=== PATIENT | female | born 1985 | race Caucasian/White ===

== ENCOUNTER 2024-03-24 11:48 | Outpatient (REF) | payer BC, SELFPAY ==
[2024-03-24 13:01] LABS: Internal Control Within Normal Limits; SARS-CoV-2 Ag POSITIVE (NEGATIVE)
== END 2024-03-24 11:49 | disposition home or self-care (01) ==
LOC: LAB 11:48
PROVIDERS: PCP Nurse Practitioner Family; Visit Provider Nurse Practitioner Family
DX: B34.9 Viral infection, unspecified (principal)
CPT/HCPCS: 87811

== ENCOUNTER 2024-06-01 13:22 | Outpatient (OUT) | payer BC, SELFPAY ==
--- NOTE | 2024-05-31 13:24 | VEINCLINIC_ITS ---
Vital Signs 06/01/24 14:03 Height 5 ft 1 in Weight 57.606 kg BMI 24.0 BP 112/68 BP Location Right Brachial BP Position Sitting BP Cuff Size Adult BP Source Manual Cuff Respiration 18 Pulse 85 Pulse Source Monitor Pulse Oximetry (%) 97 Oxygen Delivery Method Room Air Varicose Veins Patient in this day for comprehensive evaluation for bilateral pain varicose veins. Patient last was seen in 2019 without insurance approval. Patient returns with worsening leg pain to right leg only. Patient has been wearing compression stockings for the past 4 years. 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 She is active daily. Naeem Payne MD personally performed the services described in this documentation, as scribed by Mary Laguna RN in my presence and it is both accurate and complete. IMary RN, am scribing for, and in the presence of, Dr. Naeem Bailon and in the presence of the patient. thigh: right, knee: right, calf: right, ankle: right and pierce: right aching and tender 7 5 years Worsened in recent months: Yes standing elevating extremities and compression stockings Reports firmness, fatigue, heaviness, limb pain, edema and leg edema History of lower extremity trauma: No Superficial thrombophlebitis: No Family history of varicose veins: no Has patient had previous lower extremity venous surgery: No Patient has previously received the following treatment(s) for lower extremity varicose veins: Reports none Does patient have a history of : yes Does patient intend to have future pregnancies: no Has patient had lower extremity venous scan with relux testing: Yes Support hose used: Yes Problems walking or doing physical activity: Yes How does it affect you: daily - difficultly standing for long periods Do you walk much: Yes Do you stand much: Yes Review of Systems ROS Narrative Naeem Payne MD personally performed the services described in this documentation, as scribed by Mary Laguna RN in my presence and it is both accurate and complete. Mary Payne RN, am scribing for, and in the presence of, Dr. Naeem Bailon and in the presence of the patient. Status of ROS 10 or more systems reviewed and unremark able except as noted in history and below Cardiovascular Reports: edema and swelling of feet/ankles Musculoskeletal Reports: extremity pain and extremity swelling [facility] Medical History (Updated 05/31/24 @ 13:27 by Mary Laguna RN) Pain due to varicose veins of both lower extremities ?I83.813 - Varicose veins of bilateral lower extremities with pain (ICD-10) POTS (postural orthostatic tachycardia syndrome) ?G90.A - Postural orthostatic tachycardia syndrome [POTS] (ICD-10) Hypertension ?I10 - Essential (primary) hypertension (ICD-10) Family History (Updated 05/31/24 @ 13:29 by Mary Laguna RN) Sister Family history of diabetes mellitus Father Family history of hypertension Grandmother Pain due to varicose veins of both lower extremities Mother Family history of cancer Social History (Updated 06/01/24 @ 13:44 by Mary Laguna RN) Within the past year, how often did you have a drink containing alcohol: 2-4 times a month Within the past year, how many standard drinks containing alcohol did you have on a typical day: 1 or 2 Total score: 0 Score interpretation: A score less than 3 is consistent with normal alcohol consumption. Smoking status: Never smoker Non-prescribed substance use: denies use Meds Home Medications and Allergies Home Medications ?Medication ?Instructions ?Recorded ?Confirmed ?Type control 06/01/24 History lisinopril 10 mg tablet 10 mg PO DAILY 06/01/24 06/01/24 History Allergies Allergy/AdvReac Type Severity Reaction Status Date / Time No Known Drug Allergies Allergy Unverified 05/31/24 13:29 Exam Narrative Exam Narrative: Naeem Payne MD personally performed the services described in this doc umentation, as scribed by Mary Laguna RN in my presence and it is both accurate and complete. IMary RN, am scribing for, and in the presence of, Dr. Naeem Bailon and in the presence of the patient. Constitutional Documenting provider has reviewed patient's vital signs: yes Common normals: oriented x3 Nutritional appearance: overweight Lymph Lymphatic: no lymphedema noted Cardio Peripheral pulses: posterior tibial pulses present and dorsalis pedis pulses present Extremity General: calf tenderness, edema and other findings Right lower extremity: lower leg Right lower leg: inspection and palpation Left lower extremity: lower leg Left lower leg: inspection and palpation Neuro Common normals: oriented x3 Assessment and Plan Assessment and Plan (1) Pain due to varicose veins of both lower extremities: Plan Explained vein anatomy and physiology to patient. Explained the development of varicose veins to patient.? Explained varicose vein treatments to patient, including laser ablation, microfoam chemical ablation (Varithena), injection sclerotherapy and microphlebectomy.? Explained potential risks and benefits of varicose vein treatments.? Patient verbalizes understanding and wants to pursue varicose vein treatment.? Dr. Bailon examines patient and reviews results of bilateral leg reflux u/s.? Patient and Dr. Bailon creates a plan of care.? Patient also agrees to purchase bilateral thigh high compression stockings and wear them as educated.? Patient also educated on exercise and rest elevation of bilateral legs. Plan is to start treatment with EVLT of right GSV. Prior authorization required. Will call patient to schedule. INaeem MD personally performed the services described in this documentation, as scribed by Mary Laguna RN in my presence and it is both accurate and complete. Mary Payne RN, am scribing for, and in the presence of, Dr. Naeem Bailon and in the presence of the patient.
--- NOTE | 2024-06-01 13:27 | VEIN_ITS ---
Patient Name: SARA MAYORGA MR#: [id number] : 1985 Exam Date: 06/01/2024 Ordering Doctor: DR NAEEM BAILON M.D. RADIOLOGY REPORT PROCEDURE: VC EXT VENOUS REFLUX LUIS ENRIQUE LMTD COMPARISON: None. INDICATIONS: I83.813 Bilateral painful varicose veins TECHNIQUE: Duplex imaging of the lower extremity to assess the deep and superficial venous system for the presence of deep or superficial venous incompetence and to document the location and severity of disease. The study includes evaluation of the great saphenous vein (GSV), anterior accessory saphenous vein (AASV) and small saphenous vein (SSV). Patient scanned in reverse Trendelenburg and standing. FINDINGS: RIGHT LOWER EXTREMITY: Saphenofemoral Junction Reflux: Yes 10.0mm 3.7 sec GSV: Diam (mm) Reflux/ Time (sec) Proximal Thigh 9.4 Yes 3.7 Mid Thigh 5.5 Yes 3.1 Distal Thigh 7.8 Yes 2.9 Prox Calf 3.8 Yes 2.4 Mid Calf 2.7 Yes 1.9 Saphenopopliteal Junction Reflux: 3.5mm No SSV: Proximal Calf 2.1 No Mid Calf 1.4 No AASV: Not present Thrombi: No acute or chronic thrombus visualized Compressibility: Normal Flow: Normal Preforator: Dist/med calf 1.6mm with 0s reflux. Tech Note: Incompetent GSV. Patent varicose vein prox/med calf 7.1mm with 3.1s reflux. Patent varicose vein mid/med calf 3.5mm with 1.8s reflux. LEFT LOWER EXTREMITY: Saphenofemoral Junction Reflux: Yes 7.8 mm 2.4 sec GSV: Diam (mm) Reflux/Time (sec) Proximal Thigh 6.2 Yes 1.1 Mid Thigh 4.7 Yes 1.2 Distal Thigh 5.0 Yes 3.8 Prox Calf 4.4 Yes 2.1 Mid Calf 2.6 No Saphenopopliteal Junction Relux: 2.7 mm No SSV: Proximal Calf 1.6 No Mid Calf 1.1 No AASV: Not present Thrombi: No acute or chronic thrombus visualized Compressibility: Normal Flow: Normal Soda Dispenser: Dist/med calf 2.3mm with 0s reflux. Tech Note: Incompetent GSV. Patent varicose vein mid/med calf 1.8mm with 1.6s reflux. CONCLUSION:. 1. Severe bilateral great saphenous vein venous insufficiency with dilatation and saphenofemoral junction reflux 2. Bilateral incompetent varicose veins Dictated by: Naeem Bailon MD on 06/01/2024 at 14:17 Approved by: Naeem Bailon MD on 06/01/2024 at 14:18
--- NOTE | 2024-06-01 13:27 | VEIN_ITS ---
Patient Name: SARA MAYORGA MR#: [id number] : 1985 Exam Date: 06/01/2024 Ordering Doctor: DR NAEEM BAILON M.D. RADIOLOGY REPORT PROCEDURE: FACILITY [facility] - OFFICE VISIT INITIAL COMPARISON: None. PROGRESS NOTES: 38-year-old female who presents with a 5-6 year history of lower extremity pain swelling and varicose veins. Patient was seen here in 2019 but did not have treatments at that time due to insurance coverage. Patient returns with progression of her symptoms. The patient has worn compression stockings for the past 4 years. The patient's symptoms are exacerbated by prolonged sitting and standing, required of her job at [employer]. The patient does have some relief with leg elevation compression stocking use an oral analgesics. The patient denies any signs and symptoms to suggest arterial ischemia. The patient describes a family history significant for diabetes hypertension varicose veins and cancer. Past medical history significant for pots syndrome and hypertension well controlled oral medication. The patient drinks 2-4 drinks per month. The patient has never smoked. No substance abuse. See separate history and physical for medication list. No prior treatment for varicose or spider veins. Long-term use of compression stockings. After review of nurse notes, history and physical exam I discussed at length the pathophysiology of venous hypertension and possible treatments, therapies and strategies available. We discussed at length the importance of elevating the lower extremities above the level of the heart, increased physical activity and compression stocking use. We discussed alternatives including surgical ligation and stripping phlebectomy as well as conservative treatment with compression stockings. We discussed intravenous laser ablation micro foam chemical ablation at length. Risks benefits and alternatives were discussed. The patient's questions were answered Ultrasound venous reflux study performed the same day was discussed at length with the patient. The report demonstrates severe bilateral great saphenous vein venous insufficiency with dilatation and saphenofemoral junction reflux. No deep vein reflux. Right leg incompetent varicose veins measuring up to 7.1 mm PHYSICAL EXAM: The right leg demonstrates moderate varicose veins. Mild subcutaneous edema. No hemosiderin staining or active ulceration The left leg demonstrates no varicose veins, subcutaneous edema, hemosiderin staining or active ulceration Both thighs, legs and feet were symmetrically warm to the touch. Good posterior tibial and dorsalis pedis pulses were present bilaterally. VEIN/VC Facility EST Comprehensive IMPRESSION: 1. Severe bilateral great saphenous venous insufficiency with dilatation and saphenofemoral junction reflux 2. Moderate right lower extremity income varicose veins 3. Minimal right lower extremity subcutaneous edema 4. No definite flow significant arterial disease 5. CEAP: C3, Ep, As, Pr PLAN: 1. Endovenous laser ablation right great saphenous vein followed by left great saphenous vein 2. Micro foam chemical ablation right leg incompetent varicose veins 3. Long-term use of 20-30 mm knee high cord thigh-high compression stockings 4. Leg elevation and increased physical activity for symptomatic relief Nurse notes, history and physical were reviewed and confirmed, see attached forms. The nurse was present throughout the physical exam and consultation Dictated by: Naeem Bailon MD on 06/01/2024 at 14:45 Approved by: Naeem Bailon MD on 06/01/2024 at 14:52
--- OUTSIDE RECORDS SUMMARY | 2024-06-01 13:31 | XMS_ITS | CCD ---
Author Organization [facility] Inform ion Partnership [facility] CliniSymd Care Team Providers Care Typesetters Printer Name Role Phone Noemi Zendejas Unavailable GOLCONDA, DR POLLARD Primary Care Unavailable NEIL, DR DILLARD Attending Unavailable NEIL, DR DILLARD Consulting Unavailable NEIL, DR DILLARD Admitting Unavailable Medications Current Medications Medication Drug Class(es) Dates Sig (Normalized) Sig (Original) (1 source) Active Lisinopril (1 source) Angiotensin Converting Enzyme Inhibitor Lisinopril Active Problems Active Problems Problem Classification Problem Date Documented Date Episodic/Chronic Immunizations and screening for infectious disease (2 sources) Contact with and (suspected) exposure to other viral communicable diseases; Translations: [Encounter for screening for human papillomavirus (HPV)] Onset: 06-15-2021 Resolved: 06-15-2021 Episodic Other screening for suspected conditions (not mental disorders or infectious disease) (4 sources) Encounter for screening for malignant neoplasm of cervix; Translations: [ENC SCREENING MALIG NEOPLASM CERV] Onset: 09-04-2022 Episodic Past or Other Problems Problem Classification Problem Date Documented Da te Episodic/Chronic Other upper respiratory infections (1 source) Acute upper respiratory infection, unspecified Onset: 06-15-2021 Resolved: 06-15-2021 Episodic Results Test Name Value Interpretation Reference Range Facil ity PAP ACOG PANEL 2: 30 to 65on 09-10-2022 . . Normal [facility] Comment on above: Result Comment: Performed at: WB Performed By: #### [id number] #### [facility] [address] [place] [address] Dr. Kari Ruano Age Gdln ACOG Testing 30-65 Normal [facility] Comment on above: Performed By: #### [id number] #### [facility] [address] [address] [address] Kari Ruano DIAGNOSIS: Comment Normal [facility] Comment on above: Result Comment: NEGATIVE FOR INTRAEPITHE LIAL LESION OR MALIGNANCY. Performed at: WB Performed By: #### [id number] #### [facility] [address] [place] [address] Dr. Kari Ruano HPV Aptima Negative Normal Negative [facility] Comment on above: Result Comment: This nucleic acid amplif ication test detects fourteen high-risk HPV types (16,18,31,33,35,39,45,51,52,56,58,59,66,68) without differentiation. Performed at: =G Performed By: #### [id number] #### [facility] [address] [place] [address] Dr. Kari Ruano HPV Genotype Reflex Comment Normal [facility] Comment on above: Result Comment: Criteria not met, HPV Ge notype not performed. Performed at: WB Performed By: #### [id number] #### [facility] [address] [place] [address] Dr. Kari Ruano Methodology: Comment Normal [facility] Comment on above: Result Comment: This liquid based ThinPr ep(R) pap test was screened with the use of an image guided system. Performed at: WB Performed By: #### [id number] #### [facility] [address] [place] [address] Dr. Kari Ruano Note: Comment Normal [facility] Comment on above: Result Comment: The Pap smear is a scree cyndee test designed to aid in the detection of premalignant and malignant conditions of the uterine cervix. It is not a diagnostic procedure and should not be used as the sole means of detecting cervical cancer. Both false-positive and false-negative reports do occur. . Performed at: WB Performed By: #### [id number] #### [facility] [address] [place] [address] Dr. Kari Ruano Performed by: Comment Normal [facility] Comment on above: Result Comment: Santos Gramajo [employer] logist (ASCP) Performed at: WB Performed By: #### [id number] #### [facility] [address] [address] [address] Kari Ruano Specimen adequacy: Comment Normal [facility] Comment on above: Result Comment: Satisfactory for evaluat ion. Endocervical and/or squamous metaplastic cells (endocervical component) are present. Performed at: WB Performed By: #### [id number] #### [facility] [address] [address] [address] Kari Ruano Vital Signs Date Time Vital Sign Value Performing Clinician Facility 06-15-2021 10:30-0400 Body height 157.48 cm Noemi Ginty Other [facility] Other 06-15-2021 10:30-0400 Body mass index (BMI) [Ratio] 22.86 kg/m2 Noemi Ginty Other [facility] Other 06-15-2021 10:30-0400 Body temperature 97.5 [degF] Noemi Ginty Other [facility] Other 06-15-2021 10:30-0400 Body weight 56.7 kg Noemi Ginty Other [facility] Other 06-15-2021 10:30-0400 SaO2% (BldA) [Mass fraction] 98 % Noemi Ginty Other [facility] Other Encounters Encounter Date Encounter Type Care Provider Facility Start: 09-04-2022 End: 09-04-[address] LATRICE VANCE Facility: Start: 06-15-2021 End: 06-15-2021 ambulatory Noemi Ginty Other [facility] Other Start: 06-15-2021 Office outpatient vi sit 15 minutes Noemi Ginty [facility] Payers Date Payer Category Payer Unknown [id number] 1961 Unknown [id number] Unknown [id number] Social History Date Type Detail Facility Unknown if ever smoked [facility] Other Sex Assigned At Sex Assigned At Bir th [facility] Other Evaluation note 06-15-2021 Note Date & Type Note Facility 06-15-2021 Evaluation note Encounter Date Diagnosis Assessment Notes Jun, Contact with and (suspected) exposure to other viral communicable diseases (ICD-10 - Z20.828) Jun, Viral URI (ICD-10 - J06.9) Advised patient that COVID antigen test was negative today. Advised patient that will tx as viral URI. Supportive care as directed, increase fluids and rest, Tylenol/Motrin as directed, OTC cough/cold remedies as directed on packaging, cool mist humidifier, throat lozenges. Recommended patient start taking OTC Zyrtec or Claritin for a few days to see if she has any improvement. Discussed infection control practices such as good hand washing and mask wearing. Patient to follow up with PCP if sx persist or worsen despite treatment. Immediate eval for warning s/sx as discussed. Patient verbalizes understanding and is agreeable to treatment plan Jun, Other Additional time spent conducting pre-visit phone call, screening for symptoms, instructions on social distancing, application and removal of PPE, and cleaning of examination room, equipment and supplies was preformed. Patient education given for testing methodology and results. Patient care instructions given in writting by [facility] Care At Home document [facility] Other History general Narrative - Reported Note Date & Type Note Facility History general Narrative - Reported Type Medical History high blood pressure [facility] Other Summary Purpose Family History No Family History Records Found Advance Directives No Advanced Directives Records Found Additional Source Comments REASON FOR VISIT (unrecogniz ed section and content) #[address] [place] [address], SORE THROAT , COUGH X3 DAYS INFORMATION SOURCE (unrecogn ized section and content) DATE CREATED AUTHOR 09/11/2022 [facility] FOR RECORDS PERTAINING TO PATIENTS WHO ARE OR HAVE BEEN ENROLLED IN A CHEMICAL DEPENDENCY/SUBSTANCEABUSE PROGRAM, SOME INFORMATION MAY BE OMITTED. This clinical summary was aggregated from multiple sources. Caution should be exercised in using it in the provision of clinical care. This summary normalizes information from multiple sources, and as a consequence, information in this document may materially change the coding, format and clinical context of patient data. In addition, data may be omitted in some cases. CLINICAL DECISIONS SHOULD BE BASED ON THE PRIMARY CLINICAL RECORDS. [facility] [employer] [facility]. provides no warranty or guarantee of the accuracy or completeness of information in this document.
[2024-06-01 14:03] VITALS: BP 112/68; PULSE 85; O2SAT 97; BMI 24.0
--- NOTE | 2024-06-01 14:11 | P.DS_ITS ---
Discharge Plan Discharge Disposition: Home, Self-Care Outpatient Diagnostics: VC Endovenous Ablation 1VeinRT (Routine) Timeframe: 2 Months Facility: [facility] - Location: Vein Center Ordered By: Naeem Bailon Follow Up Appointments: will call patient to schedule Plan of Treatment: prior authorization required. Will call patient to schedule when approved. Patient Instructions: Endovenous Ablation (GEN) Print Language: Greek Discharge Date/Time: 06/01/24 14:35
== END 2024-06-01 14:35 | disposition home or self-care (01) ==
PROVIDERS: PCP Radiology Diagnostic Radiology; Visit Provider Radiology Diagnostic Radiology
DX: I83.813 Varicose veins of bilateral lower extremities with pain (principal)
CPT/HCPCS: 93970; G0463

== ENCOUNTER 2024-08-02 09:59 | Outpatient (OUT) | payer BC, SELFPAY ==
--- NOTE | 2024-07-30 07:42 | V.VEINS.HP ---
Vital Signs 08/02/24 10:16 BP 118/62 BP Location Left Brachial BP Position Sitting BP Cuff Size Adult BP Source Manual Cuff Respiration 16 Pulse 100 H Pulse Source Monitor Pulse Oximetry (%) 99 Oxygen Delivery Method Room Air Varicose Veins Patient in this day for EVLT of right GSV Naeem Payne MD personally performed the services described in this documentation, as scribed by Harley Miller RN in my presence and it is both accurate and complete. IHarley RN, am scribing for, and in the presence of, Dr. Naeem Bailon and in the presence of the patient. thigh: right, knee: right, calf: right, ankle: right and pierce: right aching and tender 7 5 years Worsened in recent months: Yes standing elevating extremities and compression stockings Reports firmness, fatigue, heaviness, limb pain, edema and leg edema History of lower extremity trauma: No Superficial thrombophlebitis: No Family history of varicose veins: no Has patient had previous lower extremity venous surgery: No Patient has previously received the following treatment(s) for lower extremity varicose veins: Reports none Does patient have a history of : yes Does patient intend to have future pregnancies: no Has patient had lower extremity venous scan with relux testing: Yes Support hose used: Yes Problems walking or doing physical activity: Yes How does it affect you: daily - difficultly standing for long periods Do you walk much: Yes Do you stand much: Yes Review of Systems ROS Narrative Naeem Payne MD personally performed the services described in this documentation, as scribed by Harley Miller RN in my presence and it is both accurate and complete. IHarley RN, am scribing for, and in the presence of, Dr. Naeem Bailon and in the presence of the patient. Status of ROS 10 or more systems reviewed and unremarkable except as noted in history and below Cardiovascular Reports: edema and swelling of feet/ankles Musculoskeletal Reports: extremity pain and extremity swelling [facility] Medical History (Updated 07/30/24 @ 07:45 by Harley Miller) Phlebitis of superficial vein of right lower extremity ?I80.01 - Phlebitis and thrombophlebitis of superficial vessels of right lower extremity (ICD-10) Pain due to varicose veins of both lower extremities ?I83.813 - Varicose veins of bilateral lower extremities with pain (ICD-10) POTS (postural orthostatic tachycardia syndrome) ?G90.A - Postural orthostatic tachycardia syndrome [POTS] (ICD-10) Hypertension ?I10 - Essential (primary) hypertension (ICD-10) Surgical History (Updated 08/02/24 @ 10:18 by Harley Miller) Status post laser ablation of incompetent vein ?Z98.890 - Other specified postprocedural states (ICD-10) Family History (Updated 05/31/24 @ 13:29 by Mary Laguna, ANGELA) Sister Family history of diabetes mellitus Father Family history of hypertension Grandmother Pain due to varicose veins of both lower extremities Mother Family history of cancer Social History (Updated 06/01/24 @ 13:44 by Mary Laguna, RN) Within the past year, how often did you have a drink containing alcohol: 2-4 times a month Within the past year, how many standard drinks containing alcohol did you have on a typical day: 1 or 2 Total score: 0 Score interpretation: A score less than 3 is consistent with normal alcohol consumption. Smoking status: Never smoker Non-prescribed substance use: denies use Meds Home Medications and Allergies Home Medications ?Medication ?Instructions ?Recorded ?Confirmed ?Type control 06/01/24 History lisinopril 10 mg tablet 10 mg PO DAILY 06/01/24 06/01/24 History Allergies Allergy/AdvReac Type Severity Reaction Status Date / Time No Known Drug Allergies Allergy Unverified 05/31/24 13:29 Exam Narrative Exam Narrative: Naeem Payne MD personally performed the services described in this documentation, as scribed by Harley Miller RN in my presence and it is both accurate and complete. Harley Payne RN, am scribing for, and in the presence of, Dr. Naeem Bailon and in the presence of the patient. Constitutional Documenting provider has reviewed patient's vital signs: yes Common normals: oriented x3 Nutritional appearance: overweight Lymph Lymphatic: no lymphedema noted Cardio Peripheral pulses: posterior tibial pulses present and dorsalis pedis pulses present Extremity General: calf tenderness, edema and other findings Right lower extremity: lower leg Right lower leg: inspection and palpation Left lower extremity: lower leg Left lower leg: inspection and palpation Neuro Common normals: oriented x3 Assessment and Plan Assessment and Plan (1) Pain due to varicose veins of both lower extremities: Plan f/u evaluation with physician along with right leg limited u/s I, Naeem Bailon MD personally performed the services described in this documentation, as scribed by Harley Miller RN in my presence and it is both accurate and complete. I, Harley Miller RN, am scribing for, and in the presence of, Dr. Naeem Bailon and in the presence of the patient. Procedures Procedure Instructions Procedures Plan of care: Risks and benefits of the procedure were discussed at length and informed written consent was obtained.? Time-out completed for verification of correct patient, procedure and site.? Staff present during time-out: Harley Miller RN,? Naeem Bailon MD, Shantel Sullivan [facility] Time Out Time__1041 Patient prepped and procedure performed in usual sterile fashion. Risk of injury related to use of Diode laser and/or laser devices__CR___ ? Serial number of laser used :? [id number] Control panel self test performed, electrical cords in good condition, floor is dry, basin of water available, fire extinguisher in close proximity_CR__ Polycarbonate goggles available and Laser warning signs outside of doors___CR__ Eye protection provided to patient and staff in room_CR___ Use of laser retardant drapes and dull blackened instruments as directed__CR___ Use of nonflammable prep solutions and use of saline soaked sponges to protect tissues as indicated _CR___ Length ___31 cm Laser operated by __Dr. Bailon Physician verbal confirmation laser locked in place__CR__ Laser start time (date and time) __08/02/2024@_1050 Laser stop time(date and time) __08/02/2024@_1053 Sandoval _8.0___ Average laser use __1586 Joules Average laser use___198 seconds Pulse continuous ___CR_? Pulse intermittent ___ Amount of Tumescent used __125cc____ Evaluated patient for signs and symptoms of electrical injury __CR___ ? Skin clear at insertion site __CR___ Patient tolerated procedure well.? Right leg Coban dressing applied to access site.? Applied right thigh high leg compression stocking. Will return on 08/06/2024 for right leg limited venous ultrasound and exam. INaeem MD personally performed the services described in this documentation, as scribed by Harley Miller RN in my presence and it is both accurate and complete. I, Harley Miller RN, am scribing for, and in the presence of, Dr. Naeem Bailon and in the presence of the patient.
--- NOTE | 2024-07-30 07:45 | P.DS_ITS ---
Discharge Plan Discharge Disposition: Home, Self-Care Outpatient Diagnostics: VC Facility EST LMTD (Routine) Timeframe: 2 Weeks Facility: [facility] - Location: [facility] Ordered By: Naeem Bailon VC EXT Venous RT LMTD (Routine) Timeframe: 2 Weeks Facility: [facility] - Location: [facility]in Center Ordered By: Naeem Bailon Follow Up Appointments: 08/06/2024 Plan of Treatment: f/u evaluation with physician with right leg limited u/s Patient Instructions: Endovenous Ablation (DC) Print Language: Mosotho Discharge Date/Time: 08/02/24 10:21
[2024-08-02] MEDS: 0.9 % SODIUM CHLORIDE 500 ML, LIDOCAINE HCL 20 ML, SODIUM BICARBONATE 10 MEQ INJ (09:57)
[2024-08-02] MEDS: LIDOCAINE HCL 1% 100 MG/10 ML MDV INJ (09:57)
--- NOTE | 2024-08-02 10:00 | VEIN_ITS ---
[address] [address] Patient Name: SARA MAYORGA MRN: [id number] date: 1985 Sex: F Assigned Patient Location: Current Patient Location: Accession/Order Number: [id number] Exam Date: 08/02/2024 10:01 Report Date: 08/02/2024 11:15 At the request of: LYNDSEY HARMON Procedure: VC Endovenous Ablation 1VeinRT EXAMINATION: VC Endovenous Ablation 1Vein right great saphenous vein HISTORY: I83.813 - Varicose veins of bilateral lower extremities w... COMPARISON: No relevant comparison available. TECHNIQUE: The risks and benefits of the procedure had been previously discussed, and were rediscussed at length. Informed written consent was obtained. Shantel Sullivan and Harley Miller assisted. Time out procedure was performed. The right lower extremity was prepared and draped in the usual sterile fashion to allow knee flexion in the sterile field. Duplex ultrasound probe was draped in a sterile cover, sterile transmission gel was used. Venous mapping was performed with the areas of dilation and large tributaries marked. The total length was 31 cm from the entry below the knee to 3 cm below the saphenofemoral junction. The diameter of the greater saphenous vein ranged from 5-10 mm. A 30 gauge needle and 1% buffered lidocaine was used to anesthetize the entry site. A 4 mm incision was made with a scalpel and the saphenous vein was entered percutaneously under direct ultrasound guidance with a micropuncture set, a single stick was successful in gaining access. A micro-guide wire was inserted and the needle removed. A micro-set including a dilator was inserted over the microwire and the needle and dilator were removed. A 0.018 guide wire was inserted through the micro-set and threaded through the saphenous vein to the saphenofemoral junction. The dilator was removed and an introducer sheath was inserted over the wire until the end of the sheath entered the saphenofemoral junction. The dilator and wire were removed and the 600 micron fiber was introduced and placed and positioned so that it extended beyond the sheath and was 3 cm peripheral to the saphenofemoral femoral junction. Final position of the fiber was determined by ultrasound guidance and duplex imaging. Baironcent anesthetic was delivered by ultrasound guidance. 125 cc of fluid was delivered along the entire course of the saphenous vein. The solution consisted of 1000 cc of normal saline with 40 mL of 1% lidocaine and 20 mL of sodium bicarbonate. A final positioning check was made. The energy source was turned on by means of the foot pedal and the fiber and sheath were withdrawn. The total number of Joules delivered was 1586. The laser was active for 198 seconds under continuous pulse, average laser use of 8 J. Laser start time 10:50 AM 08/02/2024 . Laser stop time 10:53 AM 08/02/2024 . A duplex ultrasound revealed compressibility and flow at the saphenofemoral junction immediately after the procedure. Hemostasis at the access site was achieved. The skin incision of the saphenous vein was closed with a 4 x 4. A compression stocking was applied. Postop instructions were given. A follow up appointment was recommended and scheduled. The patient tolerated the procedure well and was discharged in good condition . VEIN/VC Endovenous Ablation 1VeinRT IMPRESSION: Technically successful endovenous laser ablation of the right great saphenous vein Electronically authenticated by: LYNDSEY HARMON Date: 08/02/2024 11:15
[2024-08-02 10:16] VITALS: BP 118/62; PULSE 100; O2SAT 99
--- NOTE | 2024-08-06 09:54 | P.DS_ITS ---
Discharge Plan Discharge Disposition: Home, Self-Care Outpatient Diagnostics: VC Endovenous Ablation 1VeinRT (Routine) Timeframe: 2 Weeks Facility: [facility] - Location: Vein Center Ordered By: Cy Mcdaniel VC Facility EST LMTD (Routine) Timeframe: 2 Weeks Facility: [facility] - Location: Vein Center Ordered By: Naeem Bailon VC EXT Venous RT LMTD (Routine) Timeframe: 2 Weeks Facility: [facility] - Location: Vein Center Ordered By: Naeem Bailon Follow Up Appointments: 08/06/2024 Plan of Treatment: f/u evaluation with physician with right leg limited u/s Patient Instructions: Endovenous Ablation (DC) Print Language: Armenian Discharge Date/Time: 08/02/24 10:21
== END 2024-08-02 10:21 | disposition home or self-care (01) ==
LOC: VC 09:59
PROVIDERS: PCP Radiology Diagnostic Radiology; Visit Provider Radiology Diagnostic Radiology
DX: I83.813 Varicose veins of bilateral lower extremities with pain (principal)
CPT/HCPCS: 36478

== ENCOUNTER 2024-08-06 09:50 | Outpatient (OUT) | payer BC, SELFPAY ==
--- NOTE | 2024-08-05 15:28 | V.VEINS.HP ---
Vital Signs 08/06/24 10:01 BP 112/68 BP Location Left Brachial BP Position Sitting BP Cuff Size Adult BP Source Manual Cuff Respiration 16 Pulse 107 H Pulse Source Monitor Pulse Oximetry (%) 98 Oxygen Delivery Method Room Air Varicose Veins Patient in this day for EVLT of left GSV. Cy Payne MD personally performed the services described in this documentation, as scribed by Mary Laguna RN in my presence and it is both accurate and complete. Mary Payne RN, am scribing for, and in the presence of, Dr. Cy Mcdaniel and in the presence of the patient. thigh: right, knee: right, calf: right, ankle: right and pierce: right aching and tender 7 5 years Worsened in recent months: Yes standing elevating extremities and compression stockings Reports firmness, fatigue, heaviness, limb pain, edema and leg edema History of lower extremity trauma: No Superficial thrombophlebitis: No Family history of varicose veins: no Has patient had previous lower extremity venous surgery: No Patient has previously received the following treatment(s) for lower extremity varicose veins: Reports none Does patient have a history of : yes Does patient intend to have future pregnancies: no Has patient had lower extremity venous scan with relux testing: Yes Support hose used: Yes Problems walking or doing physical activity: Yes How does it affect you: daily - difficultly standing for long periods Do you walk much: Yes Do you stand much: Yes Review of Systems ROS Narrative Cy Payne MD personally performed the services described in this documentation, as scribed by Mary Laguna RN in my presence and it is both accurate and complete. Mary Payne RN, am scribing for, and in the presence of, Dr. Cy Mcdaniel and in the presence of the patient. Status of ROS 10 or more systems reviewed and unremarkable except as noted in history and below Cardiovascular Reports: edema and swelling of feet/ankles Musculoskeletal Reports: extremity pain and extremity swelling [facility] Medical History (Updated 08/06/24 @ 11:00 by Mary Laguna RN) Phlebitis and thrombophlebitis of superficial vessels of left lower extremity ?I80.02 - Phlebitis and thrombophlebitis of superficial vessels of left lower extremity (ICD-10) Phlebitis of superficial vein of right lower extremity ?I80.01 - Phlebitis and thrombophlebitis of superficial vessels of right lower extremity (ICD-10) Pain due to varicose veins of both lower extremities ?I83.813 - Varicose veins of bilateral lower extremities with pain (ICD-10) POTS (postural orthostatic tachycardia syndrome) ?G90.A - Postural orthostatic tachycardia syndrome [POTS] (ICD-10) Hypertension ?I10 - Essential (primary) hypertension (ICD-10) Surgical History (Updated 08/02/24 @ 10:18 by Harley Miller) Status post laser ablation of incompetent vein ?Z98.890 - Other specified postprocedural states (ICD-10) Family History (Updated 05/31/24 @ 13:29 by Mary Laguna RN) Sister Family history of diabetes mellitus Father Family history of hypertension Grandmother Pain due to varicose veins of both lower extremities Mother Family history of cancer Social History (Updated 06/01/24 @ 13:44 by Mary Laguna RN) Within the past year, how often did you have a drink containing alcohol: 2-4 times a month Within the past year, how many standard drinks containing alcohol did you have on a typical day: 1 or 2 Total score: 0 Score interpretation: A score less than 3 is consistent with normal alcohol consumption. Smoking status: Never smoker Non-prescribed substance use: denies use Meds Home Medications and Allergies Home Medications ?Medication ?Instructions ?Recorded ?Confirmed ?Type control 06/01/24 History lisinopril 10 mg tablet 10 mg PO DAILY 06/01/24 06/01/24 History Allergies Allergy/AdvReac Type Severity Reaction Status Date / Time No Known Drug Allergies Allergy Unverified 05/31/24 13:29 Exam Narrative Exam Narrative: ICy MD personally performed the services described in this documentation, as scribed by Mary Laguna RN in my presence and it is both accurate and complete. IMary RN, am scribing for, and in the presence of, Dr. Cy Mcdaniel and in the presence of the patient. Constitutional Documenting provider has reviewed patient's vital signs: yes Common normals: oriented x3 Nutritional appearance: overweight Lymph Lymphatic: no lymphedema noted Cardio Peripheral pulses: posterior tibial pulses present and dorsalis pedis pulses present Other: LMP 07/13/24 Extremity General: calf tenderness, edema and other findings Right lower extremity: lower leg Right lower leg: inspection and palpation Left lower extremity: lower leg Left lower leg: inspection and palpation Neuro Common normals: oriented x3 Assessment and Plan Assessment and Plan (1) Pain due to varicose veins of both lower extremities: Plan The patient tolerated the procedure well without complication.? The patient verbalizes understanding and states they will comply.? Patient was given post-procedure instructions. Patient was discharged in good condition.? Scheduled to undergo follow-up evaluation on 08/09/24. ICy MD personally performed the services described in this documentation, as scribed by Mary Laguna RN in my presence and it is both accurate and complete. IMary RN, am scribing for, and in the presence of, Dr. Cy Mcdaniel and in the presence of the patient. Procedures Procedure Instructions Procedures Plan of care: Risks and benefits of the procedure were discussed at length and informed written consent was obtained.? Time-out completed for verification of correct patient, procedure and site.? Staff present during time-out: Mary Laguna RN,? Cy Mcdaniel MD, [facility],RVT. Time Out Time___1025____ Patient prepped and procedure performed in usual sterile fashion. Risk of injury related to use of Diode laser and/or laser devices? __AG___ ? Serial number of laser used :? [id number] Control panel self test performed, electrical cords in good condition, floor is dry, basin of water available, fire extinguisher in close proximity_AG__ Polycarbonate goggles available and Laser warning signs outside of doors___AG___ Eye protection provided to patient and staff in room_AG___ Use of laser retardant drapes and dull blackened instruments as directed__AG___ Use of nonflammable prep solutions and use of saline soaked sponges to protect tissues as indicated _AG___ Length ____37____ cm Laser operated by ____Dr. Mcdaniel Physician verbal confirmation laser locked in place__AG__ Laser start time (date and time) _08/06/24@1038 Laser stop time(date and time) __08/06/24@1043 Sandoval _8.0___ Average laser use ____2202___Joules Average laser use____275____seconds Pulse continuous ___AG_? Pulse intermittent ___ Amount of Tumescent used __100____ Evaluated patient for signs and symptoms of electrical injury __AG___ ? Skin clear at insertion site __AG___ Patient tolerated procedure well.? Left leg Coban dressing applied to access site.? Applied Left thigh high leg compression stocking. Will return on 08/09/24 for Left leg limited venous ultrasound and exam. ICy MD personally performed the services described in this documentation, as scribed by aMry Laguna RN in my presence and it is both accurate and complete. I, Mary Laguna RN, am scribing for, and in the presence of, Dr. Cy Mcdaniel and in the presence of the patient.
--- NOTE | 2024-08-05 15:32 | W.VEIN ---
Discharge Plan Discharge Disposition: Home, Self-Care Outpatient Diagnostics: VC EXT Venous LUIS ENRIQUE Limited (Routine) Timeframe: 2 Weeks Facility: [facility] - Location: Vein Center Ordered By: Cy Mcdaniel VC Facility EST LMTD (Routine) Timeframe: 2 Weeks Facility: [facility] - Location: Vein Center Ordered By: Cy Mcdaniel Follow Up Appointments: 08/09/24 Plan of Treatment: u/s following evlt of left and right gsv 08/06/24 Patient Instructions: Endovenous Ablation (DC) Print Language: Lebanese Discharge Date/Time: 08/06/24 10:59
--- NOTE | 2024-08-06 10:00 | VEIN_ITS ---
[address] [address] Patient Name: SARA MAYORGA MRN: [id number] date: 1985 Sex: F Assigned Patient Location: Current Patient Location: Accession/Order Number: [id number] Exam Date: 08/06/2024 10:00 Report Date: 08/06/2024 11:17 At the request of: STEVE FRAGOSO Procedure: VC Endovenous Ablation 1VeinLT EXAMINATION: VC Endovenous Ablation 1VeinRT HISTORY: I83.813 - Varicose veins of bilateral lower extremities w... The risks and benefits of the procedure had been previously discussed, and were rediscussed at length. Informed written consent was obtained. Mary Laguna RN and Leticia Hennessy RDMS, RVT assisted. Time out procedure was performed. The right lower extremity was prepared and draped in the usual sterile fashion to allow knee flexion in the sterile field. Duplex ultrasound probe was draped in a sterile cover, sterile transmission gel was used. Venous mapping was performed with the areas of dilation and large tributaries marked. The total length was 37 cm from the entry proximal calf to 3 cm below the Saphenofemoral junction. The diameter of the left great saphenous vein ranged from 9.4 mm. A 30 gauge needle and 1% buffered lidocaine was used to anesthetize the entry site. A 4 mm incision was made with a scalpel and the saphenous vein was entered percutaneously under direct ultrasound guidance with a micropuncture set, a single stick was successful in gaining access. A micro-guide wire was inserted and the needle removed. A micro-set including a dilator was inserted over the microwire and the needle and dilator were removed. A guide wire was inserted through the micro-set and guided through the saphenous vein to the saphenofemoral junction. The dilator was removed and an introducer sheath was inserted over the wire until the end of the sheath entered the saphenofemoral junction. The dilator and wire were removed and the 600 micron fiber was introduced and placed and positioned so that it extended beyond the sheath and was 3 cm distal to the saphenofemoral or saphenopopliteal junction. Final position of the fiber was determined by ultrasound guidance and duplex imaging. Tumescent anesthetic was delivered by ultrasound guidance. 100 cc of fluid was delivered along the entire course of the saphenous vein. The solution consisted of 1000 cc of normal saline with 40 mL of 1% lidocaine and 20 mL of sodium bicarbonate. A final positioning check was made. The energy source was turned on by means of the foot pedal and the fiber and sheath were withdrawn. The total number of Joules delivered was 2202. The laser was active for 275 seconds under continuous pulse, average laser use of 8 J. Laser start time: 10:38 AM Laser stop time: 10:43 AM Date: 08/06/2024. A duplex ultrasound revealed compressibility and flow at the saphenofemoral junction immediately after the procedure. Hemostasis at the access site was achieved. The skin incision of the saphenous vein was closed with a 4 x 4. A compression stocking was applied. Postop instructions were given. A follow up appointment was recommended and scheduled. The patient tolerated the procedure well. Electronically authenticated by: STEVE FRAGOSO Date: 08/06/2024 11:17
[2024-08-06 10:01] VITALS: BP 112/68; PULSE 107; O2SAT 98
--- NOTE | 2024-08-06 10:03 | VEIN_ITS ---
[address] [address] Patient Name: SARA MAYORGA MRN: [id number] date: 1985 Sex: F Assigned Patient Location: Current Patient Location: Accession/Order Number: [id number] Exam Date: 08/06/2024 10:26 Report Date: 08/06/2024 11:17 At the request of: STEVE FRAGOSO Procedure: VC Endovenous Ablation 1VeinRT EXAMINATION: VC Endovenous Ablation 1VeinRT HISTORY: I83.813 - Varicose veins of bilateral lower extremities w... The risks and benefits of the procedure had been previously discussed, and were rediscussed at length. Informed written consent was obtained. Mary Laguna RN and Leticia Hennessy RDMS, RVT assisted. Time out procedure was performed. The right lower extremity was prepared and draped in the usual sterile fashion to allow knee flexion in the sterile field. Duplex ultrasound probe was draped in a sterile cover, sterile transmission gel was used. Venous mapping was performed with the areas of dilation and large tributaries marked. The total length was 37 cm from the entry proximal calf to 3 cm below the Saphenofemoral junction. The diameter of the left great saphenous vein ranged from 9.4 mm. A 30 gauge needle and 1% buffered lidocaine was used to anesthetize the entry site. A 4 mm incision was made with a scalpel and the saphenous vein was entered percutaneously under direct ultrasound guidance with a micropuncture set, a single stick was successful in gaining access. A micro-guide wire was inserted and the needle removed. A micro-set including a dilator was inserted over the microwire and the needle and dilator were removed. A guide wire was inserted through the micro-set and guided through the saphenous vein to the saphenofemoral junction. The dilator was removed and an introducer sheath was inserted over the wire until the end of the sheath entered the saphenofemoral junction. The dilator and wire were removed and the 600 micron fiber was introduced and placed and positioned so that it extended beyond the sheath and was 3 cm distal to the saphenofemoral or saphenopopliteal junction. Final position of the fiber was determined by ultrasound guidance and duplex imaging. Tumescent anesthetic was delivered by ultrasound guidance. 100 cc of fluid was delivered along the entire course of the saphenous vein. The solution consisted of 1000 cc of normal saline with 40 mL of 1% lidocaine and 20 mL of sodium bicarbonate. A final positioning check was made. The energy source was turned on by means of the foot pedal and the fiber and sheath were withdrawn. The total number of Joules delivered was 2202. The laser was active for 275 seconds under continuous pulse, average laser use of 8 J. Laser start time: 10:38 AM Laser stop time: 10:43 AM Date: 08/06/2024. A duplex ultrasound revealed compressibility and flow at the saphenofemoral junction immediately after the procedure. Hemostasis at the access site was achieved. The skin incision of the saphenous vein was closed with a 4 x 4. A compression stocking was applied. Postop instructions were given. A follow up appointment was recommended and scheduled. The patient tolerated the procedure well. Electronically authenticated by: STEVE FRAGOSO Date: 08/06/2024 11:17
[2024-08-06] MEDS: LIDOCAINE HCL 1% 100 MG/10 ML MDV INJ (10:16)
[2024-08-06] MEDS: 0.9 % SODIUM CHLORIDE 500 ML, LIDOCAINE HCL 20 ML, SODIUM BICARBONATE 10 MEQ INJ (10:21)
--- NOTE | 2024-08-09 08:03 | P.DS_ITS ---
Discharge Plan Discharge Disposition: Home, Self-Care Outpatient Diagnostics: VC Endovenous Ablation 1VeinLT (Routine) Timeframe: [id number] Facility: [facility] - Location: Vein Center Ordered By: Cy Mcdaniel VC Facility EST LMTD (Routine) Timeframe: 2 Weeks Facility: [facility] - Location: Vein Center Ordered By: Cy Mcdaniel VC EXT Venous LUIS ENRIQUE Limited (Routine) Timeframe: 2 Weeks Facility: [facility] - Location: Vein Center Ordered By: Cy Mcdaniel Follow Up Appointments: 08/09/24 Plan of Treatment: u/s following evlt of left and right gsv 08/06/24 Patient Instructions: Endovenous Ablation (DC) Print Language: Japanese Discharge Date/Time: 08/06/24 10:59
== END 2024-08-06 10:59 | disposition home or self-care (01) ==
LOC: VC 09:52
PROVIDERS: PCP Radiology Diagnostic Radiology; Visit Provider Radiology Diagnostic Radiology
DX: I83.813 Varicose veins of bilateral lower extremities with pain (principal)
CPT/HCPCS: 36478

== ENCOUNTER 2024-08-09 09:49 | Outpatient (OUT) | payer BC, SELFPAY ==
[2024-08-09 07:54] VITALS: BMI 24.0
--- NOTE | 2024-08-09 07:54 | V.VEINS.HP ---
Vital Signs 08/09/24 07:54 Height 5 ft 1 in Weight 57.6 kg BMI 24.0 Varicose Veins Patient in this day for EVLT of left GSV. ICy MD personally performed the services described in this documentation, as scribed by Mary Laguna RN in my presence and it is both accurate and complete. I, Mary Laguna RN, am scribing for, and in the presence of, Dr. Cy Mcdaniel and in the presence of the patient. thigh: right, knee: right, calf: right, ankle: right and pierce: right aching and tender 7 5 years Worsened in recent months: Yes standing elevating extremities and compression stockings Reports firmness, fatigue, heaviness, limb pain, edema and leg edema History of lower extremity trauma: No Superficial thrombophlebitis: No Family history of varicose veins: no Has patient had previous lower extremity venous surgery: No Patient has previously received the following treatment(s) for lower extremity varicose veins: Reports none Does patient have a history of : yes Does patient intend to have future pregnancies: no Has patient had lower extremity venous scan with relux testing: Yes Support hose used: Yes Problems walking or doing physical activity: Yes How does it affect you: daily - difficultly standing for long periods Do you walk much: Yes Do you stand much: Yes [facility] Medical History (Updated 08/06/24 @ 11:00 by Mary Laguna RN) Phlebitis and thrombophlebitis of superficial vessels of left lower extremity ?I80.02 - Phlebitis and thrombophlebitis of superficial vessels of left lower extremity (ICD-10) Phlebitis of superficial vein of right lower extremity ?I80.01 - Phlebitis and thrombophlebitis of superficial vessels of right lower extremity (ICD-10) Pain due to varicose veins of both lower extremities ?I83.813 - Varicose veins of bilateral lower extremities with pain (ICD-10) POTS (postural orthostatic tachycardia syndrome) ?G90.A - Postural orthostatic tachycardia syndrome [POTS] (ICD-10) Hypertension ?I10 - Essential (primary) hypertension (ICD-10) Surgical History (Updated 08/02/24 @ 10:18 by Harley Miller) Status post laser ablation of incompetent vein ?Z98.890 - Other specified postprocedural states (ICD-10) Family History (Updated 05/31/24 @ 13:29 by Mary Laguna RN) Sister Family history of diabetes mellitus Father Family history of hypertension Grandmother Pain due to varicose veins of both lower extremities Mother Family history of cancer Social History (Updated 06/01/24 @ 13:44 by Mary Laguna RN) Within the past year, how often did you have a drink containing alcohol: 2-4 times a month Within the past year, how many standard drinks containing alcohol did you have on a typical day: 1 or 2 Total score: 0 Score interpretation: A score less than 3 is consistent with normal alcohol consumption. Smoking status: Never smoker Non-prescribed substance use: denies use Meds Home Medications and Allergies Home Medications ?Medication ?Instructions ?Recorded ?Confirmed ?Type control 06/01/24 History lisinopril 10 mg tablet 10 mg PO DAILY 06/01/24 06/01/24 History Allergies Allergy/AdvReac Type Severity Reaction Status Date / Time No Known Drug Allergies Allergy Unverified 05/31/24 13:29
--- NOTE | 2024-08-09 09:03 | V.VEINS.HP ---
Vital Signs 08/09/24 07:54 Height 5 ft 1 in Weight 57.6 kg BMI 24.0 Varicose Veins Patient in today for follow up ultrasound of bilateral lower extremities following treatment of EVLT of bilateral GSVs completed on 08/02/24 and 08/06/24. Cy Payne MD personally performed the services described in this documentation, as scribed by Shantel Sullivan RDMS in my presence and it is both accurate and complete. Shantel Payne RDMS, am scribing for, and in the presence of, Dr. Cy Mcdaniel and in the presence of the patient. thigh: right, knee: right, calf: right, ankle: right and pierce: right aching and tender 7 5 years Worsened in recent months: Yes standing elevating extremities and compression stockings Reports firmness, fatigue, heaviness, limb pain, edema and leg edema History of lower extremity trauma: No Superficial thrombophlebitis: No Family history of varicose veins: no Has patient had previous lower extremity venous surgery: No Patient has previously received the following treatment(s) for lower extremity varicose veins: Reports none Does patient have a history of : yes Does patient intend to have future pregnancies: no Has patient had lower extremity venous scan with relux testing: Yes Support hose used: Yes Problems walking or doing physical activity: Yes How does it affect you: daily - difficultly standing for long periods Do you walk much: Yes Do you stand much: Yes Review of Systems ROS Narrative Cy Payne MD personally performed the services described in this documentation, as scribed by Shantel Sullivan RDMS in my presence and it is both accurate and complete. Shantel Payne RDMS, am scribing for, and in the presence of, Dr. Cy Mcdaniel and in the presence of the patient. Status of ROS 10 or more systems reviewed and unremarkable except as noted in history and below Cardiovascular Reports: edema and swelling of feet/ankles Musculoskeletal Reports: extremity pain and extremity swelling [facility] Medical History (Updated 08/09/24 @ 09:05 by Shantel Sullivan) Phlebitis and thrombophlebitis of superficial vessels of lower extremities, bilateral ?I80.03 - Phlebitis and thrombophlebitis of superficial vessels of lower extremities, bilateral (ICD-10) Phlebitis and thrombophlebitis of superficial vessels of left lower extremity ?I80.02 - Phlebitis and thrombophlebitis of superficial vessels of left lower extremity (ICD-10) Phlebitis of superficial vein of right lower extremity ?I80.01 - Phlebitis and thrombophlebitis of superficial vessels of right lower extremity (ICD-10) Pain due to varicose veins of both lower extremities ?I83.813 - Varicose veins of bilateral lower extremities with pain (ICD-10) POTS (postural orthostatic tachycardia syndrome) ?G90.A - Postural orthostatic tachycardia syndrome [POTS] (ICD-10) Hypertension ?I10 - Essential (primary) hypertension (ICD-10) Surgical History (Updated 08/02/24 @ 10:18 by Harley Miller) Status post laser ablation of incompetent vein ?Z98.890 - Other specified postprocedural states (ICD-10) Family History (Updated 05/31/24 @ 13:29 by Mary Laguna RN) Sister Family history of diabetes mellitus Father Family history of hypertension Grandmother Pain due to varicose veins of both lower extremities Mother Family history of cancer Social History (Updated 06/01/24 @ 13:44 by Mary Laguna RN) Within the past year, how often did you have a drink containing alcohol: 2-4 times a month Within the past year, how many standard drinks containing alcohol did you have on a typical day: 1 or 2 Total score: 0 Score interpretation: A score less than 3 is consistent with normal alcohol consumption. Smoking status: Never smoker Non-prescribed substance use: denies use Meds Home Medications and Allergies Home Medications ?Medication ?Instructions ?Recorded ?Confirmed ?Type control 06/01/24 History lisinopril 10 mg tablet 10 mg PO DAILY 06/01/24 06/01/24 History Allergies Allergy/AdvReac Type Severity Reaction Status Date / Time No Known Drug Allergies Allergy Unverified 05/31/24 13:29 Exam Narrative Exam Narrative: Mild bruising and tenderness to medial left thigh noted. Cy Payne MD personally performed the services described in this documentation, as scribed by Shantel Sullivan RDMS in my presence and it is both accurate and complete. IShantel RDMS, am scribing for, and in the presence of, Dr. Cy Mcdaniel and in the presence of the patient. Constitutional Documenting provider has reviewed patient's vital signs: yes Common normals: oriented x3 Nutritional appearance: overweight Lymph Lymphatic: no lymphedema noted Cardio Peripheral pulses: posterior tibial pulses present and dorsalis pedis pulses present Other: LMP 07/13/24 Extremity General: calf tenderness, edema and other findings Right lower extremity: lower leg Right lower leg: inspection and palpation Left lower extremity: lower leg Left lower leg: inspection and palpation Neuro Common normals: oriented x3 Results Imaging Venous US: Radiologist's impression: Heat induced thrombus in right GSV 1.6 cm from SFJ and extends to medial knee. Heat induced thrombus in left GSV 2.3 cm from SFJ and extends to proximal calf. Cy Payne MD personally performed the services described in this documentation, as scribed by Shantel Sullivan RDMS in my presence and it is both accurate and complete. Shantel Payne RDMS, am scribing for, and in the presence of, Dr. Cy Mcdaniel and in the presence of the patient. Assessment and Plan Assessment and Plan (1) Phlebitis and thrombophlebitis of superficial vessels of lower extremities, bilateral: Plan Patient's insurance did not approve of varithena/microfoam. Patient is done with treatment at this time. Cy Payne MD personally performed the services described in this documentation, as scribed by Shantel Sullivan RDMS in my presence and it is both accurate and complete. Shantel Payne RDMS, am scribing for, and in the presence of, Dr. Cy Mcdaniel and in the presence of the patient.
--- NOTE | 2024-08-09 09:50 | VEIN_ITS ---
Patient Name: SARA MAYORGA MR#: [id number] : 1985 Exam Date: 08/09/2024 Ordering Doctor: DR STEVE FRAGOSO M.D. RADIOLOGY REPORT PROCEDURE: FACILITY EST LMTD [facility]IN [facility] - OFFICE VISIT FOLLOW UP COMPARISON: None. PROGRESS NOTES: The patient reports improvement in leg symptoms. There has been interval reduction in varicosities. The patient has followed our recommendations to walk 20-30 minutes once or twice per day since the procedure. Physical exam demonstrates decrease in varicosities of the leg. A few persistent superficial varicosities are identified along the legs bilaterally. Review of the ultrasound performed the same day demonstrates occlusive thrombus extending throughout the treated vein(s), see separate report, consistent with a successful ablation. No thrombus extending into or beyond the saphenofemoral junction. The patient expressed a desire to proceed with treatment of remaining incompetent branch saphenous varicosities but has not been improved by patient's insurance for microfoam chemical ablation or sclerotherapy. VEIN/ Facility EST TD IMPRESSION: 1. Successful ablation of the right and left great saphenous vein(s). 2. A few persistent branch saphenous varicosities bilaterally. PLAN: 1. Patient may follow-up with us in the future as needed or when symptomatic. Alternatively, the patient could follow-up with us in 2-3 months for re-evaluation of remaining incompetent branch saphenous varicosities with resubmission to insurance company for possible approval of microfoam chemical ablation. Nurse notes, history and physical were reviewed and confirmed, see attached forms. The nurse was present throughout the physical exam and consultation Dictated by: Steve Fragoso M.D. on 08/09/2024 at 11:39 Approved by: Steve Fragoso M.D. on 08/09/2024 at 11:42
--- NOTE | 2024-08-09 09:50 | VEIN_ITS ---
Patient Name: SARA MAYORGA MR#: [id number] : 1985 Exam Date: 08/09/2024 Ordering Doctor: DR STEVE MCDANIEL M.D. RADIOLOGY REPORT PROCEDURE: VC EXT VENOUS LUIS ENRIQUE LIMITED COMPARISON: None. INDICATIONS: I80.01 - Phlebitis and thrombophlebitis of superficial veins right leg TECHNIQUE: Lower extremity burnett scale and Duplex Doppler evaluation of the deep venous system from the inguinal ligament through the calf veins. FINDINGS: REGION: Right lower extremity. THROMBI: Acute occlusive thrombus. Heat induced thrombus in right GSV 1.6 cm from SFJ and extends to medial knee. COMPRESSIBILITY: Non-compressible segments. FLOW: Areas on no flow. OTHER: Negative. REGION: Left lower extremity. THROMBI: Acute occlusive thrombus.Heat induced thrombus in left GSV 2.3 cm from SFJ and extends to proximal calf. COMPRESSIBILITY: Non-compressible segments. FLOW: Areas on no flow. OTHER: Negative. CONCLUSION: 1. Successful post ablation occlusion of right great saphenous vein. 2. Successful post ablation occlusion of left great saphenous vein. Dictated by: Steve Mcdaniel M.D. on 08/09/2024 at 11:38 Approved by: Steve Mcdaniel M.D. on 08/09/2024 at 11:39
--- OUTSIDE RECORDS SUMMARY | 2024-08-09 10:04 | XMS_ITS | CCD ---
Author Organization [facility] Inform ion Partnership [facility] Care Team Providers Care Steel Fitter Name Role Phone Noemi Zendejas Unavailable LAWTEY, DR POLLARD Primary Care Unavailable NEIL, DR [...] to 63on 09-10-2022 . . Normal [facility] Comment on above: Result Comment: Performed at: WB Performed By: #### [id number] #### [facility] [address] [place] [address] Dr. Kari Ruano Age Gdln ACOG Testing 30-65 Normal [facility] Comment on above: Performed By: #### [id number] #### [facility] [address] [address] [address] Kari Ruano DIAGNOSIS: Comment Normal [facility] Comment on above: Result Comment: NEGATIVE FOR INTRAEPITHE LIAL LESION OR MALIGNANCY. Performed at: WB Performed By: #### [id number] #### [facility] [address] [place] [address] Dr. Kari Ruano HPV Aptima Negative Normal Negative [facility] Comment on above: Result Comment: This nucleic acid amplif ication test detects fourteen high-risk HPV types (16,18,31,33,35,39,45,51,52,56,58,59,66,68) without differentiation. Performed at: =G Performed By: #### [id number] #### [facility] [address] [place] [address] Dr. Kari Ruano HPV Genotype Reflex Comment Normal [facility] Comment on above: Result Comment: Criteria not met, HPV Ge notype not performed. Performed at: WB Performed By: #### [id number] #### [facility] [address] [place] [address] Dr. Kari Ruano Methodology: Comment Normal [facility] Comment on above: Result Comment: This liquid based ThinPr ep(R) pap test was screened with the use of an image guided system. Performed at: WB Performed By: #### [id number] #### [facility] [address] [place] [address] Dr. Kari Ruano Note: Comment Normal [facility] Comment on above: Result Comment: The Pap smear is a scree cyndee test designed to aid in the detection of premalignant and malignant conditions of the uterine cervix. It is not a diagnostic procedure and should not be used as the sole means of detecting cervical cancer. Both false-positive and false-negative reports do occur. . Performed at: WB Performed By: #### [id number] #### [facility] [address] [place] [address] Dr. Kari Ruano Performed by: Comment Normal [facility] Comment on above: Result Comment: Santos Gramajo [employer] log[employer] (ASCP) Performed at: WB Performed By: #### [id number] #### [facility] [address] [address] [address] Kari Ruano Specimen adequacy: Comment Normal [facility] Comment on above: Result Comment: Satisfactory for evaluat ion. Endocervical and/or squamous metaplastic cells (endocervical component) are present. Performed at: WB Performed By: #### [id number] #### [facility] [address] [address] [address] Kari Ruano Vital Signs Date Time Vital Sign Value Performing Clinician Facility 06-15-2021 10:30-0400 Body height 157.48 cm Noemi Ginty Other [facility] Other 06-15-2021 10:30-0400 Body mass index (BMI) [Ratio] 22.86 kg/m2 Noemi Ginty Other [facility] Other 06-15-2021 10:30-0400 Body temperature 97.5 [degF] Noemi Ginty Other [facility] Other 06-15-2021 10:30-0400 Body weight 56.7 kg Noemi Ginty Other [facility] Other 06-15-2021 10:30-0400 SaO2% (BldA) [Mass fraction] 98 % Noemi Ginty Other [facility] Other Encounters Encounter Date Encounter Type Care Provider Facility Start: 09-04-2022 End: 09-04-[address] LATRICE VANCE Facility: Start: 06-15-2021 End: 06-15-2021 ambulatory Noemi Ginty Other [facility] Other Start: 06-15-2021 Office outpatient vi sit 15 minutes Noemi Ginty [facility] Payers Date Payer Category Payer Unknown [id number] 1961 Unknown [id number] Unknown [id number] Social History Date Type Detail Facility Unknown if ever smoked [facility] Other Sex Assigned At Sex Assigned At Bir th [facility] Other Evaluation note 06-15-2021 Note Date & [...] Patient care instructions given in writting by [facility] Care At Home document [facility] Other History general Narrative - Reported Note Date & Type Note Facility History general Narrative - Reported Type Medical History high blood pressure [facility] Other Summary Purpose Family History No Family History Records Found Advance Directives No Advanced Directives Records Found Additional Source Comments REASON FOR VISIT (unrecogniz ed section and content) #[address] [place] [address], SORE THROAT , COUGH X3 DAYS INFORMATION SOURCE (unrecogn ized section and content) DATE CREATED AUTHOR 09/11/2022 [facility]DS PERTAINING TO PATIENTS WHO ARE [...] BE BASED ON THE PRIMARY CLINICAL RECORDS. [facility] [employer] [facility]. provides no warranty or guarantee of the accuracy or completeness of information in this document.
--- NOTE | 2024-08-09 10:17 | P.DS_ITS ---
Discharge Plan Discharge Disposition: Home, Self-Care Discharge Medications: No Action lisinopril 10 mg tablet 10 mg PO DAILY control Plan of Treatment: Patient's insurance did not approve Varithena/microfoam. Finished with treatment at this time. Follow up as needed or in 1-2 years. Print Language: Namibian Discharge Date/Time: 08/09/24 10:17
== END 2024-08-09 10:17 | disposition home or self-care (01) ==
PROVIDERS: PCP Radiology Diagnostic Radiology; Visit Provider Radiology Diagnostic Radiology
DX: I80.01 Phlebitis and thrombophlebitis of superficial vessels of right lower extremity (principal)
CPT/HCPCS: 93970; G0463

== ENCOUNTER 2025-07-05 08:57 | Outpatient (OUT) | payer BC, SELFPAY ==
--- OUTSIDE RECORDS SUMMARY | 2025-07-05 09:03 | XMS_ITS | CCD ---
Author Organization [facility] Care Team Providers Care Senior Hr Generalist Name Role Phone Noemi Zendejas Unavailable DR LATRICE VANCE Primary Care Unavailable NEIL, DR DILLARD Attending Unavailable NEIL, DR DILLARD Consulting Unavailable NEIL, DR DILLARD Admitting Unavailable Unavailable Primary Care Provider Unavailfatoumata Solares MD, Frederick Mckeon Primary Care Provider [phone] GARRISON QIU Attending Unavailable GARRISON QIU Attending Unavailable GARRISON QIU Attending Unavailable DINA DANIELS Attending Unavailable Medications Current Medications MedicationDrug Class(es)DatesSig (Normalized)Sig (Original)Ethinyl Estradiol / Ferrous fumarate / Norethindrone (12 sources)EstrogenStart: 86-34-2632vvbjbcyvejily-ethinyl estradiol (08/30) 1-20 MG-MCG tablet Indications: Irregular menstrualcycle , Family planning counseling , Oral contraception initiation Take 1 tablet by mouth 1 (one) time each day at the same time 84 tablet 1 01/25/2025 Active End: 27-90-5941smdlhrhvsixra-ethinyl estradiol (08/30) 1-20 MG-MCG tablet 1 (one) time each day at the same time 01/25/2025 Discontinued (Therapy completed)norethindrone-ethinyl estradiol (08/30) 1-20 MG-MCG tablet 1 (one) time each day at the same time ActiveJunel FE .01/07 (1 source) FE Activelisinopril 10 mg oral tablet (11 sources)Angiotensin Converting Enzyme InhibitorStart: 56-33-2477teuf 1 tablet by mouth once dailylisinopril 10 MG tablet Take 10 mg by mouth Daily 09/02/2024 ActiveLisinopril Active Problems Active Problems Problem ClassificationProblemDateDocumented DateEpisodic/ChronicContraceptive and procreative management (4 sources)Patient encounter status; Translations: [Encounter for other general counseling and advice on contraception]33-38-7267GsyjesngQireboocyetuh and screening for infectious disease (2 sources)Contact with and (suspected) exposure to other viral communicable diseases; Translations: [Encounter for screening for human papillomavirus (HPV)] Onset: 06-15-2021 Resolved: 31-33-4556AbsbowsuYoipetdcv disorders (2 sources)Irregular periods; Translations: [Irregular menstruation, unspecified]92-07-4443AhghpmkCupzt aftercare (2 sources)Removal of sutures done; Translations: [Encounter for removal of sutures]33-27-8288GdwpwmqqLljun screening for suspected conditions (not mental disorders or infectious disease) (4 sources)Encounter for screening for malignant neoplasm of cervix; Translations: [ENC SCREENING MALIG NEOPLASM CERV]Onset: 13-20-5708CseqqbkvUoizt skin disorders (2 sources)Eruption; Translations: [Rash and other nonspecific skin eruption] 61-81-2776MnylhzhrDbcsj skin disorders (4 sources)Lentigo simplex; Translations: [Other melanin hyperpigmentation] 97-27-0666RmjjfestRizod skin disorders (2 sources)Epidermoid cyst; Translations: [Epidermal cyst]42-69-9883Rcfvmfdd Past or Other Problems Problem ClassificationProblemDateDocumented DateEpisodic/ChronicOther upper respiratory infections (1 source)Acute upper respiratory infection, unspecifiedOnset: 06-15-2021 Resolved: 60-27-5080Tuwsdhbg Results Test NameValueInterpretationReference RangeFacilityNo Panel Informationon 68-86-3601Itra of biopsy: punch Informed consent: discussed and consent obtained Informed consent comment: The risks and benefits were discussed. Risks include, but are not limited to, bleeding, infection, scarring, pain, & nerve damage. An opportunity to ask questions prior to the procedure was permitted and questions were answered. Patient was prepped and draped in usual sterile fashion: Area cleansed with alcohol. Anesthesia: the lesion was anesthetized in a standard fashion Anesthetic: 1% lidocaine w/ epinephrine 1-100,000 buffered w/ 8.4% NaHCO3 Punch size: 3 mm (A biopsy by punch method was performed using a dermal punch) Suture size: 4-0 Suture type: nylon Suture type comment: Hemostasis was achieved with suture. Suture removal (days): 14 Hemostasis achieved with: suture Outcome: patient tolerated procedure well Post-procedure details: sterile dressing applied and wound care instructions given Post-procedure details comment: Emphasized the need to contact clinic for any signs of infection, uncontrollable bleeding, or complications. Dressing type: bandage Additional details: Amount of lidocaine used: 1 cc Number of sutures used: 2 Specimen sent for: H&E Photo [facility] ACOG PANEL 2: 30 to 65on 09-10-2022 ..NormalThe [facility] HospitalComment on above:Result Comment: Performed at: WB Performed By: #### [id number] #### [facility] [address] [place] [address] Dr. Kari Cabrales Gdln ACOG Hutscif72-32JwfvdmLmwUniversity Hospitals Lake West Medical CenterComment on above:Performed By: #### [id number] #### [facility] [address] [place] [address] Dr. Kari RuanoDIAGNOSIS:CommentPremier Health Upper Valley Medical Center on above: Result Comment: NEGATIVE FOR INTRAEPITHELIAL LESION OR MALIGNANCY. Performed at: WBPerformed By: #### [id number] #### [place] [address] Dr. Kari Davis AptimaNegativeNormalNegativeMagruder HospitalCommclaren northern [place] on above:Result Comment: This nucleic acid amplification test detects fourteen high-risk HPV types (16,18,31,33,35,39,45,51,52,56,58,59,66,68) without differentiation. Performed at: =GPerformed By: #### [id number] #### [facility] [address] [place] [address] Dr. Kari Davis Genotype ReflexCommentPremier Health Upper Valley Medical Center on above:Result Comment: Criteria not met, HPV Genotype not performed. Performed at: WBPerformed By: #### [id number] #### [facility] [address] [place] [address] Dr. Kari RuanoMethodology:CommentPremier Health Upper Valley Medical Center on above: Result Comment: This liquid based ThinPrep(R) pap test was screened with the use of an image guided system. Performed at: WBPerformed By: #### [id number] #### [place] [address] Dr[address] Kari RuanoNote:CommentPremier Health Upper Valley Medical Center on above:Result Comment: The Pap smear is a screening test designed to aid in the detection of premalignant and malignant conditions of the uterine cervix. It is not a diagnostic procedure and should not be used as the sole means of detecting cervical cancer. Both false-positive and false-negative reports do occur. . Performed at: WBPerformed By: #### [id number] #### [place] [address] Dr[address] Kari RuanoPerformed by:CommentPremier Health Upper Valley Medical Center on above: Result Comment: Santos Gramajo, Case Coordinator (ASCP) Performed at: WBPerformed By: #### [id number] #### [place] [address] Dr[address] Kari RuanoSpecimen adequacy:CommentPremier Health Upper Valley Medical Center on above:Result Comment: Satisfactory for evaluation. Endocervical and/or squamous metaplastic cells (endocervical component) are present. Performed at: WBPerformed By: #### [id number] #### [facility] [address] [place] [address] Dr. Kari Ruano Vital Signs Date TimeVital SignValuePerforming FbxahecxpBkoqppmx72-50-3158 10:00-0400Body mass index (BMI) [Ratio]24.75 kg/m2Mona NataprDotspinra DO Work Phone: [facility]vvzaqqpkb69-86-6314 10:00-0400Body hdgayf42.42 kgMona NataprDotspin DO Work Phone: [facility]ettNiqhfqhwhp96-60-2617 10:00-0400Diastolic blood zxawzxws38 mm[Hg]Dina Daniels DO Work Phone: [facility] Fkafdiggrd89-65-6788 10:00-0400Systolic blood doecjmlu342 mm[Hg]Dina Daniels DO Work Phone: [facility] Mlfbojvyll18-50-5797 10:30-0400Body .48 cmAmber Ginty Other [employer] Other 11-05-2021 10:30-0400Body mass index (BMI) [Ratio] 22.86 kg/w9Sfyrf Ginty Other [employer] [employer] Other 11-05-2021 10:30-0400Body bzhaywgqvbz90.5 [degF]Noemi Ginty Other [employer] Other 11-05-2021 10:30-0400Body ivbmnn95.7 kgAmber Ginty Other [employer] Other 11-05-2021 10:30-4476QyD7% (BldA) [Mass fraction]98 % Noemi Ginty Other [employer] Other Encounters Encounter DateEncounter TypeCare ProviderFacilityStart: 01-25-2025 End: 30-53-4592Ptikyd outpatient new 20 minutesDina Pyle Gemra DO Work Phone: [facility] OBComment on above:Irregular menstrual cycle (Primary Dx); Family planning counseling; Oral contraception initiationStart: 01-25-2025 End: 99-13-2776dsuccofsiuPKUO J NATAPRAWIRANot AvailableStart: 01-05-2025 End: 76-26-2482Fxfcvo Cynthia Qiu PA Work Phone: [facility] SWS DERMStart: 01-05-2025 End: 07-85-3071Xynvxq flowsheetlee [facility] PA Work Phone: [facility] SWS DERMStart: 01-05-2025 End: 55-32-5293Wwroaz outpatient visit 15 [facility] PA Work Phone: [facility] SWS DERMComment on above:Epidermal inclusion cyst (Primary Dx)Start: 01-05-2025 End: 67-40-0025xcuxtulsgaWCYXM NORTHMNot AvailableStart: 09-29-2024 End: 23-90-3079Sujulf flowsLake City [facility] PA Work Phone: [facility] SWS DERMStart: 09-29-2024 End: 65-11-8477Kmwqdh [facility] PA Work Phone: [facility] SWS DERMStart: 09-29-2024 End: 36-56-7225Izzqpl outpatient visit 15 [facility] PA Work Phone: [facility] SWS DERMComment on above:Lentigo simplex (Primary Dx); Encounter for removal of suturesStart: 09-29-2024 End: 11-47-5710dfeybwlkijAVKPM NORTHMNot AvailableStart: 09-16-2024 End: 95-19-0267Msvfea flowsLake City VA Medical Center PA Work Phone: [facility] SWS DERMStart: 09-16-2024 End: 06-20-2879Fzknou [facility] PA Work Phone: [facility] SWS DERMStart: 09-16-2024 End: 24-55-4004Isczywt encounter procedureWilliamson Medical Center PA Work Phone: [facility] SWS DERMComment on above:Rash and other nonspecific skin eruption (Primary Dx)Start: 09-16-2024 End: 59-54-7974ueyomqgceqMSVNX NORTHEIMNot AvailableStart: 09-04-2022 End: 97-77-8910famrnmfcyjCZ LATRICE HOUSEFacility:C4Uexkj: 06-15-2021 End: 82-91-7211hlzldzvewhVqddw Ginty Other [place] [employer] Other Start: 19-55-8412Euacnt outpatient visit 15 minutes Noemi AashishFPG Ur[facility] Procedures DateProcedureProcedure DetailPerforming ClinicianStart: 96-85-5206MRJA / NAIL BIOPSYRylee Lazarus RODRIGUEZ Work Phone: Plan of Treatment DateCare ActivityDetailAuthorStart: 05-30-2025 End: 23-13-3979Oqpvffd encounter qkaxmtdns55/20/2025 10:15 AM EDT Office Visit [facility] [address] [address] Dina Daniels DO [address] [address] [facility] NB OBStart: 03-21-2025 End: 87-17-2183Tmwonqd encounter qrcavzjfq58/11/2025 10:00 AM EDT Procedure Visit [facility] [address] [place] [id number] Vicky Bruce MD [address] [place] [address] [facility] SWS DERMStart: 01-25-2025 End: 91-41-1156Mkocftm encounter falqevrid40/17/2025 10:00 AM EDT Office Visit [facility] [address] [address] Dina Daniels DO [address] [address] N[facility] NB OBStart: 01-05-2025 End: 01-21-2585Oxchglq encounter rqlanjmhz01/ 1:10 PM EDT Office Visit [facility] [address] [place] [address] Garrison Qiu PA [address] [place] [address] ArrivedNOMS SWS DERMComment on above:ArrivedStart: 09-29-2024 End: 95-32-9422Fpmrknd encounter procedureNOMS SWS DERMComment on above:Arrived Start: 09-16-2024 End: 09-58-5665Qhcilge encounter rxkcayeoi22/06/2025 1:20 PM EST Office Visit [facility] [address] [place] [address] Garrison Qiu PA [address] [place] [address] ArrivedNOMS SWS DERMComment on above:Arrived Dermatopathology examDermatopathology exam Pathology and Cytology Timed Rash and other nonspecific skin eruption ReleaseUpon Ordering for 1 Occurrences starting 09/16/2024[facility] Work Phone: comment on above:Release Upon Ordering for 1 Occurrences starting 09/16/2024 Payers DatePayer CategoryPayerPolicy [id number] Hospitals Lake [facility] Medical Center .[id number] 2..[id number] [id number] [id number] 2..[id number] 2.0.1.877050.19 Social History DateTypeDetailFacilityUnknown if ever smokedNoThe car [employer] Other Start: 54-74-4285Eul Assigned At BirthThe car [employer] Other Start: 60-63-0980Pcbfuyh smoking status NHISTobacco smoking consumption unknownNOMS HealthcareStart: 22-26-1555Jyr assigned at Not on fileNOMS HealthcareStart: 37-62-2426Psbgfug smoking status NHISNever smoked tobaccoNOMS HealthcareStart: 67-71-9351Djjhgce use and exposureSmokeless tobacco non-userNOMS HealthcareStart: 19-33-2472Mrmdbtfas beverage intakeEx- drinker (finding)NOMS HealthcareStart: 92-30-4588Cmcglav of Social functionNOMS Healthcare History of Present illness Narrative 01-25-2025 Note Date & ZmxpEjsnZqveqwxo18-99-3675 History of Present illness Narrative* Dina Daniels, - 01/25/2025 10:00 AM EDT Images from the original note were not included. Subjective Mimi Mayorga is a 39 y.o. female HPI Chief Complaint Patient presents with sick visit New patient here to discuss periods. Patient reports that her she had one period that was irregularfor her. She states that she had 2 periods in November and since then her periods have returned to a regular cycle. She states that when she had that period in November it was heavier then normal. Her periods are usually monthly with normal bleeding and no cramping. LMP 01/10/25. 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 Past Surgical History: Procedure Laterality Date VAGINAL DELIVERY x2 No family history on file. Social History Tobacco Use Smoking status: Never Smokeless tobacco: Never Substance Use Topics Alcohol use: Not Currently Drug use: Never OB History Para Term AB Living 2 2 SAB IAB Ectopic Multiple Live Births # Outcome Date GA Lbr Jefry/2nd Weight Sex Type Anes PTL Lv 2 Para 1 Para No Known Allergies Current Outpatient Medications on File Prior to Visit Medication Sig Dispense Refill lisinopril 10 MG tablet Take 10 mg by mouth Daily [DISCONTINUED] norethindrone-ethinyl estradiol (08/30) 1-20 MG-MCG tablet 1 (one) time eachday at the same time No current facility-administered medications on file prior to visit. Review of Systems Constitutional: Negative for chills and fever. Respiratory: Negative for shortness of breath. Cardiovascular: Negative for chest pain. Gastrointestinal: Negative for nausea and vomiting. Genitourinary: Negative for dysuria, pelvic pain and vaginal discharge. Neurological: Negative for dizziness and headaches. Objective BP 116/72 Wt 131 lb BMI 24.75 kg/m Physical Exam Constitutional: Appearance: Normal appearance. Neurological: Mental Status: She is alert. Skin: General: Skin is warm and dry. Psychiatric: Mood and Affect: Mood normal. Assessment/Plan 1. Irregular menstrual cycle (Primary) Discussed etiology most likely secondary to patient was not on OCP for several months and re-started the OCP. Reassured patient - norethindrone-ethinyl estradiol (08/30) 1-20 MG-MCG tablet; Take 1 tablet by mouth 1 (one) time each day at the same time Dispense: 84 tablet; Refill: 1 2. Family planning counseling Patient voiced interest in re-starting combination OCP - norethindrone-ethinyl estradiol (08/30) 1-20 MG-MCG tablet; Take 1 tablet by mouth 1 (one) time each day at the same time Dispense: 84 tablet; Refill: 1 3. Oral contraception initiation Combination OCP Rx sent. Instruction of use and what to expect discussed. Patient to contact the office with any concerns/questions - norethindrone-ethinyl estradiol (08/30) 1-20 MG-MCG tablet; Take 1 tablet by mouth 1 (one) time each day at the same time Dispense: 84 tablet; Refill: 1 documented in this encounterNOMS Healthcare History of Present illness Narrative 01-05-2025 Note Date & ZjebDouxLmiljloj17-85-5421 History of Present illness Narrative* JENNIFER Colon - 01/05/2025 1:10 PM EDT Images from the original note were not included. Lesions: Location: left inframammary fold Duration: years Quality: painful Modifying factors: aggravated by clothing Associated symptoms: draining, enlarged, red, tender Treatments: none Established patient All pertinent medical history, medications, and allergies were reviewed. General Exam: alert, oriented to person, place, and time, normal affect, well appearing Unaccompanied A focused exam completed based on patient reported problems, see below: Skin Exam 1. EPIDERMAL INCLUSION CYST Left Inframammary Fold 1.8 x 1.0 cm subcutaneous, mobile nodule with central punctum. Patient was counseled regarding cysts. Although benign, cysts often slowly enlarge and can occasionally become inflamed. Discussed the only way to definitively diagnose the lesion would be to have itremoved and tested. Discussed treatment options including observation vs. excision. Patient elected for excision. Discussed the details of the procedure with her. Patient advised our office will contact her to schedule procedure. Next Visit: prn for any new/changing lesions documented in this encounterNOMS Healthcare History of Present illness Narrative 09-29-2024 Note Date & HeeaJpfeDpavddud54-90-1962 History of Present illness Narrative* JENNIFER Colon - 09/29/2024 1:20 PM EST Images from the original note were not included. Follow up/ Suture removal Diagnosis: Pathology tre-ezgwcbnfry-qzsb likely related to sun damage Location: forearms and hands Procedure performed: Punch biopsy Status: no change Date of procedure: 09/16/2024 Current treatment: none All pertinent medical history, medications, and allergies were reviewed. General Exam: alert, oriented to person, place, and time, normal affect, well appearing Unaccompanied A focused exam completed based on patient reported problems, see below: 1. 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 The patient was informed that lentigines are benign pigmented lesions that occur on sun-exposed andsun-damaged skin. No treatment is necessary. Recommended regular use of broad spectrum sunscreen SPF 30 or higher. Other options include laser treatment or OTC lightening creams. Patient would like to discuss laser treatment with plastics. Referral sent to Dr. Benítez's office at this time. Related Procedures Ambulatory referral to Plastic Surgery 2. Encounter for removal of sutures Right Forearm - Posterior Sutures are intact, Skin edges are well-approximated, Mild erythema along incision line, No drainage or edema noted Suture Removal: Procedure: Sutures removed without difficulty. Post-Procedure instructions: Instructed to discontinue wound care., Pathology results discussed. Next Visit: prn for any new/changing lesions documented in this encounterNOMS Healthcare History of Present illness Narrative 09-16-2024 Note Date & TvvgZsjnGzxmmbvg69-68-6469 History of Present illness Narrative* JENNIFER Colon - 09/16/2024 1:20 PM EST Rash Location: bilateral forearms and hands Duration: over a year Severity: mild Quality: denies itch, denies burning Modifying Factors: rash presents worse at work Associated symptoms: red Current treatments: HC cream, OTC lotion New patient All pertinent medical history, medications, and allergies were reviewed. General Exam: alert, oriented to person, place, and time, normal affect, well appearing Unaccompanied A focused exam completed based on patient reported problems, see below: 1. Rash and other nonspecific skin eruption Right Forearm - Posterior Erythematous and violaceous patches Biopsy today, see procedure note. Lesion biopsy - Right Forearm - Posterior Type of biopsy: punch Informed consent: discussed and consent obtained Informed consent comment: The risks and benefits were discussed. Risks include, but are not limitedto, bleeding, infection, scarring, pain, & nerve damage. An opportunity to ask questions prior to the procedure was permitted and questions were answered. Patient was prepped and draped in usual sterile fashion: Area cleansed with alcohol. Anesthesia: the lesion was anesthetized in a standard fashion Anesthetic: 1% lidocaine w/ epinephrine 1-100,000 buffered w/ 8.4% NaHCO3 Punch size: 3 mm (A biopsy by punch method was performed using a dermal punch) Suture size: 4-0 Suture type: nylon Suture type comment: Hemostasis was achieved with suture. Suture removal (days): 14 Hemostasis achieved with: suture Outcome: patient tolerated procedure well Post-procedure details: sterile dressing applied and wound care instructions given Post-procedure details comment: Emphasized the need to contact clinic for any signs of infection, uncontrollable bleeding, or complications. Dressing type: bandage Additional details: Amount of lidocaine used: 1 cc Number of sutures used: 2 Specimen sent for: H&E Photo taken Specimen A - Dermatopathology exam Differential Diagnosis: Livedo reticularis vs. Vasculitis vs. Erythema Ab igne vs. Cutaneous lupus Check Margins: No Next Visit: 14 days (s/r) [facility]-15-2021 Note Date & TbuxUntfYctsyqwf86-50-3639 Evaluation note* Encounter Date Diagnosis Assessment Notes Treatment Notes Treatment Clinical Notes Jun, Contact with and (smith spected) exposure to other viral communicable diseases (ICD-10 - Z20.828) Jun,Viral URI (ICD-10 - J06.9) Advised patient that [...] understanding and is agreeable to treatment plan Jun,OtherAdditional time spent conducting pre-visit phone call, screening for symptoms, instructions on social distancing, application and removal of PPE, and cleaning of examination room, equipment and supplies was preformed. Patient education given for testing methodology and results. Patient care instructions given in writting by [facility] Care At Home document [employer] Other Evaluation note Note Date & TypeNoteFacilityEvaluation note* Diagnosis Rash and other nonspecific skin eruption- Primary documented in this encounter [facility] Evaluation note Note Date & TypeNoteFacilityEvaluation note* Diagnosis Lentigo simplex- Primary Other dyschromia Encounter for removal of sutures documented in this encounter [facility] Evaluation note Note Date & TypeNoteFacilityEvaluation note* Diagnosis Epidermal inclusion cyst- Primary Sebaceous cyst documented in this encounter [facility] Evaluation note Note Date & TypeNoteFacilityEvaluation note* Diagnosis Irregular menstrual cycle- Primary Family planning counseling Other general counseling and advice for contraceptive management Oral contraception initiation documented in this encounter [facility] History general Narrative - Reported Note Date & TypeNoteFacilityHistory general Narrative - Reported* Type Description Date Medical History high blood pressure [employer] Other Summary Purpose Family History No Family History Records FoundNo Family History Records Found Advance Directives No Advanced Directives Records FoundNo Advanced Directives Records Found Additional Source Comments REASON FOR VISIT (unrecogniz ed section and content) ReasonCommentsRashReasonCommentsFollow-upSuture / Staple RemovalReasonComments Suspicious Skin LesionReasonCommentssick visitNew patient here to discuss periods. Patient reports that her she had one period that was irregularfor her. She states that she had 2 periods in November and since then her periods have returned to a regular cycle. She states that when she had that period in November it was heavier then normal. Her periods are usually monthly with normal bleeding and no cramping. LMP 01/10/25. 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 [employer] [facility]. provides no warranty or guarantee of the accuracy or completeness of information in this document.
--- OUTSIDE RECORDS SUMMARY | 2025-07-05 09:03 | XMS_ITS | Clinical Summary ---
Author Organization [facility] Address [address] [facility] [place] [address] Care Team Providers Care Qm Consultant Name Role Phone Frederick Solares MD Primary Care Provider [phone] Allergies No known active allergies Medications MedicationSigDispense QuantityRefillsLast FilledStart DateEnd DateStatus lisinopril 10 MG tablet Take 10 mg by mouth Daily5Active norethindrone-ethinyl estradiol (Cherie Fe 08/30) 1-20 MG-MCG tablet Indications:Irregular menstrual cycle,Family planning counseling,Oral contraception initiationTAKE 1 TABLET BY MOUTH EVERY DAY at the same time 84 tablet 5Active norethindrone-ethinyl estradiol (Junel FE 08/30) 1-20 MG-MCG tablet Indications:Irregular menstrual cycle,Family planning counseling,Oral contraception initiationTake 1 tablet by mouth 1 (one) time each day at the same time 84 tablet 5109/01/2024Discontinued Active Problems No known active problems Encounters DateTypeDepartmentCare CcmuOlksupjwbvx75/21/2025Refill [facility] [place] [facility] [address] BAILEY [facility] [address] [place] [id number] Dina Daniels DO Irregular menstrual cycle; Family planning counseling; Oral contraception initiationfrom Last 3 Months Family History RelationNameStatusCommentsFatherAliveMotherAlive Social History Tobacco UseTypesPacks/DayYears UsedDateSmoking Tobacco: NeverSmokeless Tobacco: Never Tobacco Cessation:Counseling Given: Not Answered Alcohol UseStandard Drinks/WeekCommentsNot Currently0 (1 standard drink = 0.6 oz pure alcohol)CommentsUnknownSex and Gender InformationValueDate Recorded Sex Assigned at BirthNot on fileLegal KccZdqsaw64/15/2023 11:47 PM EDTGender IdentityNot on fileSexual OrientationNot on file Last Filed Vital Signs Vital SignReadingTime TakenCommentsBlood Vepvztip041/72001/25/2025 10:00 AM EDT Pulse--Temperature--Respiratory Rate--Oxygen Saturation--Inhaled Oxygen Concentration--Labqyc02.4 kg (131 lb)01/25/2025 10:00 AM LMNJjqaky307.9 cm (5' 1 )09/04/2022 12:00 PM ESTBody Mass Index24.75009/04/2022 12:00 PM EST Plan of Treatment DateTypeDepartmentCare Team (Latest Contact Info)Cuygqjewgox93/20/2026 1:15 PM ESTOffice Visit [facility] [address] MARCIN D [address] [address] Dina Daniels DO [address] [address] Insurance Care Teams Team MemberRelationshipSpecialtyStart DateEnd Frederick Solares MD [address] [place] [id number] [facility]01/25/25
--- OUTSIDE RECORDS SUMMARY | 2025-07-05 09:03 | XMS_ITS | Clinical Summary ---
Author Organization [facility] Address [address] [place] [address] Care Team Providers Care Truck Engine Technician Name Role Phone Unavailable Primary Care Provider Unavailabl e Social History Tobacco UseTypesPacks/DayYears UsedDateSmoking Tobacco: Never Assessed CommentsUnknownSex and Gender InformationValueDate RecordedSex Assigned at Not on fileLegal TvaIgdlnh57/30/2022 12:21 AM EDTGender IdentityNot on file Sexual OrientationNot on file Last Filed Vital Signs Vital SignReadingTime TakenCommentsBlood Jmkvcgnu543/60878 11:55 AM EST Yzqtl38127/20/2019 11:55 AM ESTTemperature--Respiratory Rate--Oxygen Saturation- -Inhaled Oxygen Concentration--Ircojv48.3 kg (122 lb)11/15/2019 2:58 PM EDT Ucykit932.9 cm (5' 1 )11/15/2019 2:24 PM EDTBody Mass Index23.0504 2:24 PM EDT Plan of Treatment Not on file
--- OUTSIDE RECORDS SUMMARY | 2025-07-05 09:03 | XMS_ITS | Encounter Summary ---
Author Organization [facility] Address [address] [facility] [place] [address] Care Team Providers Care Dimmer Board Operator Name Role Phone Frederick Solares MD Primary Care Provider [phone] Reason for Visit * ReasonCommentsMed Refill Encounter Details DateType[facility]mentCare Team (Latest Contact Info)Ogbcybpagtj67/21/2025Refill [facility] [address] [place]ARC[place] D [address] [address] Dina Daniels DO [address] [address] Irregular menstrual cycle; Family planning counseling; Oral contraception initiation Social History Tobacco UseTypesPacks/DayYears UsedDateSmoking Tobacco: NeverSmokeless Tobacco: NeverAlcohol UseStandard Drinks/WeekCommentsNot Currently0 (1 standard drink = 0.6 oz pure alcohol)CommentsUnknownSex and Gender InformationValueDate RecordedSex Assigned at BirthNot on fileLegal BjgAbwgfy41/15/2023 11:47 PM EDT Gender IdentityNot on fileSexual OrientationNot on filedocumented as of this encounter Plan of Treatment DateType[facility] roswellmentCare Team (Latest Contact Info)Pswksyedwbb17/20/2026 1:15 PM ESTOffice Visit [facility] [address] MARCIN D Medical [address] [address] Dina Daniels DO [address] [address] documented as of this encounter Visit Diagnoses Diagnosis Irregular menstrual cycle Family planning counseling Other general counseling and advice for contraceptive management Oral contraception initiation documented in this encounter Care Teams Team MemberRelationshipSpecialtyStart DateEnd Frederick Solares MD [address] [place] [address] PCP - GeneralFamily Medicine01/25/25documented as of this encounter
--- NOTE | 2025-07-05 09:10 | XR_ITS ---
The [address] [address] Patient Name: SARA MAYORGA MRN: [id number] date: 1985 Sex: F Assigned Patient Location: [facility] Current Patient Location: [facility] Accession/Order Number: [id number] Exam Date: 07/05/2025 09:20 Report Date: 07/05/2025 09:39 At the request of: DARIUSZ KILGORE Procedure: XR ribs RT 2V RIGHT RIBS - 3 views COMPARISON: None CLINICAL DATA: Right anterolateral rib pain, greater under the breast for past 4 days after patient was pushing something. AP and both oblique views were obtained. The lungs are clear. No consolidation, effusion or pneumothorax is seen. The heart is normal size. There is slight thoracolumbar scoliotic curvature. No obvious acute displaced rib fractures or bony destruction are seen. XR/XR ribs RT 2V IMPRESSION: NO DEFINITE ACUTE FINDINGS. FOLLOW-UP IS RECOMMENDED, SYMPTOMS WARRANT. Impression dictated by: Tori Galvan M.D. 07/05/2025 9:39 AM Dictation Location: [place] [address] Electronically authenticated by: [id number] Y Date: 07/05/2025 09:39
== END 2025-07-05 08:58 | disposition home or self-care (01) ==
PROVIDERS: PCP Family Medicine; Visit Provider Nurse Practitioner Family
DX: R07.81 Pleurodynia (principal)
CPT/HCPCS: 71100